=== PATIENT | female | born 1995 | race Two or more races ===

== ENCOUNTER 2020-12-25 22:19 | Emergency (ER) | payer OTHER ==
[~2020-12-25] VITALS: Ht 175.3 cm; Wt 68.0 kg
[2020-12-25] MEDS ORDERED: ADVIL (22:41)
[2020-12-26] MEDS ORDERED: NAPROXEN375 MG PO (06:11)
[2020-12-26] MEDS ORDERED: PEPCID20 MG PO (06:11)
== END 2020-12-26 06:22 | disposition home or self-care (01) ==
LOC: ER 22:19
DX: N93.8 Other specified abnormal uterine and vaginal bleeding (principal); R10.2 Pelvic and perineal pain